=== PATIENT | female | born 1995 | race Caucasian/White ===

== ENCOUNTER → 2016-11-26 | Outpatient (REF) | payer OTHER | END | disposition home or self-care (01) | LOC: M SFHCLERA 08:58 | PROVIDERS: ATTEND Family Medicine | DX: Z11.8 Encounter for screening for other infectious and parasitic diseases (principal); R87.612 Low grade squamous intraepithelial lesion on cytologic smear of cervix (LGSIL) | CPT/HCPCS: 87491; 87591; G0123 ==

== ENCOUNTER → 2017-05-28 | Outpatient (CLI) | payer OTHER | LOC: M LRY 11:33 | PROVIDERS: ATTEND Family Medicine | DX: N92.6 Irregular menstruation, unspecified (principal); Z3A.01 Less than 8 weeks gestation of pregnancy ==

== ENCOUNTER → 2017-06-18 | Outpatient (CLI) | payer OTHER ==
[2017-06-18 18:52] LABS: BASO % 0.2 % (0.0-1.0); EOS # 0.2 K/mm3 (0.0-0.50); EOS % 1.4 % (0.0-3.0); LARGE UNSTAINED CELL # 0.1 K/mm3 (0.0-0.4); LARGE UNSTAINED CELL % 0.6 % (0.0-4.0); LYMPH # 2.2 K/mm3 (1.5-6.5); LYMPH % 17.7 % (24.0-44.0); MEAN CORPUSCULAR HEMOGLOBIN 31.5 pg (27.0-33.0); MEAN CORPUSCULAR HGB CONC 33.6 g/dl (32.0-36.5); MEAN CORPUSCULAR VOLUME 93.7 fl (80.0-96.0); MONO # 0.3 K/mm3 (0.0-0.8); MONO % 2.9 % (0.0-5.0); NEUTROPHILS # 9.2 K/mm3 (1.8-7.7); NEUTROPHILS % 77.3 % (36.0-66.0); PLATELET COUNT, AUTOMATED 216 k/mm3 (150-450); RED CELL DISTRIBUTION WIDTH 12.2 % (11.5-14.5); WHITE BLOOD COUNT 11.9 K/mm3 (4.0-10.0)
[2017-06-19 10:36] LABS: HBsAg Prenatal NEGATIVE (NEGATIVE)
== END ==
LOC: M LRY 12:19
PROVIDERS: ATTEND Advanced Practice Midwife
DX: Z36 Encounter for antenatal screening of mother (principal); Z3A.00 Weeks of gestation of pregnancy not specified

== ENCOUNTER → 2017-08-15 | Outpatient (CLI) | payer OTHER ==
--- NOTE | 2017-08-16 02:26 | REP ---
Clinical: Anatomical evaluation. Comparison: None . Findings: Examination demonstrates a single live intrauterine in cephalic presentation. motion is identified by technologist. Placenta is noted posteriorly and grade zero without evidence for placenta previa or abruption. Amniotic fluid volume is normal. Cervix measures 4.5 cm in length and appears closed. No evidence for nuchal cord. Gestational age by LMP 18 weeks 6 days with STACY 01/10/2018 . Gestational age by current measurements 18 weeks 4 days with STACY 01/12/2018 . FHR equals 147 beats per minute. BPD 4.0 cm 18 weeks 1 day HC 16.2 cm 19 weeks 0 days AC 13.1 cm 18 weeks 4 days FL 2.9 cm 19 weeks 0 day HL 3.0 cm 19 weeks 5 days HC/AC ratio 1.24 Estimated weight 257 grams ( 42nd percentile). Anatomical assessment demonstrates normal structures including cranium, choroid plexus, cavum, cerebellum/posterior fossa, facial features, lungs, four-chamber heart/ventricular outflow tracts, diaphragm, stomach, cord insertion/three-vessel cord, kidneys/bladder, spine, and extremities. Impression: Single live intrauterine in cephalic presentation demonstrating appropriate interval growth. No gross abnormalities are identified. Anatomical assessment is complete and normal. Signed by John Shrestha MD 08/16/2017 02:18 A
== END ==
LOC: M LRY 08:32
PROVIDERS: ATTEND Obstetrics & Gynecology
DX: Z36 Encounter for antenatal screening of mother (principal); Z3A.18 18 weeks gestation of pregnancy

== ENCOUNTER → 2017-10-14 | Outpatient (CLI) | payer OTHER ==
[2017-10-14 13:47] LABS: BASO % 0.3 % (0.0-1.0); EOS # 0.1 10^3/uL (0.0-0.50); EOS % 1.1 % (0.0-3.0); IMMATURE GRANULOCYTE % 0.8 % (0-0); LYMPH # 1.7 10^3/uL (1.5-6.5); LYMPH % 14.1 % (24.0-44.0); MEAN CORPUSCULAR HEMOGLOBIN 30.7 pg (27.0-33.0); MEAN CORPUSCULAR HGB CONC 33.3 g/dl (32.0-36.5); MEAN CORPUSCULAR VOLUME 92.2 fl (80.0-96.0); MONO # 0.7 10^3/uL (0.0-0.8); MONO % 6.2 % (0.0-5.0); NEUTROPHILS # 9.1 10^3/uL (1.8-7.7); NEUTROPHILS % 77.5 % (36.0-66.0); PLATELET COUNT, AUTOMATED 231 10^3/uL (150-450); WHITE BLOOD COUNT 11.7 10^3/uL (4.0-10.0)
== END ==
LOC: M SMT 09:38
PROVIDERS: ATTEND Advanced Practice Midwife
DX: Z34.83 Encounter for supervision of other normal pregnancy, third trimester (principal)

== ENCOUNTER → 2017-12-11 | Outpatient (CLI) | payer OTHER ==
[2017-12-11 19:36] LABS: ALBUMIN 2.8 GM/DL (3.2-5.2); ALBUMIN/GLOBULIN RATIO 0.72 (1.00-1.93); ALKALINE PHOSPHATASE 122 U/L (45-117); ALT/SGPT 20 U/L (12-78); AST/SGOT 17 U/L (7-37); BILIRUBIN,DIRECT < 0.1 MG/DL (0.0-0.2); BILIRUBIN,TOTAL 0.2 MG/DL (0.2-1.0); TOTAL PROTEIN 6.7 GM/DL (6.4-8.2)
[2017-12-14 08:06] LABS: BILE ACIDS FRACTIONATED 6.6 umol/L (4.7-24.5)
== END ==
LOC: M SMT 14:14
DX: R21 Rash and other nonspecific skin eruption (principal)
CPT/HCPCS: 80076

== ENCOUNTER → 2017-12-16 | Outpatient (REF) | payer OTHER | LOC: M LAB REF 13:17 | DX: Z34.83 Encounter for supervision of other normal pregnancy, third trimester (principal) ==

== ENCOUNTER 2018-01-01 13:44 | Outpatient (CLI) | payer OTHER | END 2018-01-01 15:45 | disposition home or self-care (01) | LOC: M LDO 13:44 | DX: O47.1 False labor at or after 37 completed weeks of gestation (principal); Z3A.38 38 weeks gestation of pregnancy | CPT/HCPCS: 59025 ==

== ENCOUNTER 2018-01-03 09:31 | Inpatient (IN) | payer OTHER ==
[2018-01-03] MEDS ORDERED: LR 1,000 ML IV (09:54)
[2018-01-03] MEDS: LACTATED RINGER'S 1000 ML IV (09:54)
[2018-01-03 10:35] LABS: HEMATOCRIT 34.4 % (36.0-47.0); HEMOGLOBIN 11.2 g/dl (12.0-16.0); MEAN CORPUSCULAR HEMOGLOBIN 26.9 pg (27.0-33.0); MEAN CORPUSCULAR HGB CONC 32.6 g/dl (32.0-36.5); MEAN CORPUSCULAR VOLUME 82.5 fl (80.0-96.0); PLATELET COUNT, AUTOMATED 254 10^3/uL (150-450); RED BLOOD COUNT 4.17 10^6/uL (4.00-5.40); RED CELL DISTRIBUTION WIDTH 14.7 % (11.5-14.5); WHITE BLOOD COUNT 17.8 10^3/uL (4.0-10.0)
[2018-01-03] MEDS ORDERED: FENTANYL 2MCG/ML ROPIVACAINE 0.2% IN 0.9% NACL 200ML IVBAG As Ordered (11:10)
[2018-01-03] MEDS ORDERED: FENTANYL/ROPIVACAINE/NACL BAG 200 ML EPIDURAL (12:30)
[2018-01-03] MEDS ORDERED: EPIDURAL/PCA KEYS XX (12:30)
[2018-01-03] MEDS ORDERED: ePHEDrine SULFATE 25 MG/5 ML(5MG/ML) SYRINGE IV (12:30)
[2018-01-03] MEDS ORDERED: NALOXONE INJ 0.4 MG/1 ML VIAL (J2310) IV (12:30)
[2018-01-03] MEDS ORDERED: EPIDURAL COMMENT XX (12:30)
[2018-01-03] MEDS ORDERED: ONDANSETRON 4MG/2ML VIAL (J2405) IV (12:30)
[2018-01-03] MEDS ORDERED: diphenhydrAMINE INJ 50MG/ML VIAL (J1200) IV (12:30)
[2018-01-03] MEDS ORDERED: LACTATED RINGER'S 1000 ML IV (12:30)
[2018-01-03] MEDS ORDERED: REFRIGERATOR IV KEYS XX (12:30)
[2018-01-03] MEDS ORDERED: ESMOLOL INJ 100MG/10ML VIAL As Ordered ×2 (12:50)
[2018-01-03] MEDS ORDERED: PHENYLephrine HCL 500 MCG/5 ML (100MCG/ML) SYRINGE (J2370) As Ordered (12:50)
[2018-01-03 13:44] LABS: AMPHETAMINES URINE REFLEX NEGATIVE (NEGATIVE); BARBITURATES URINE REFLEX NEGATIVE (NEGATIVE); BENZODIAZEPINES URINE REFLEX NEGATIVE (NEGATIVE); CANNABINOIDS URINE REFLEX NEGATIVE (NEGATIVE); COCAINE METABOLITE URINE REFLE NEGATIVE (NEGATIVE); METHADONE URINE REFLEX NEGATIVE (NEGATIVE); OPIATES URINE REFLEX NEGATIVE (NEGATIVE); PHENCYCLIDINE URINE REFLEX NEGATIVE (NEGATIVE)
[2018-01-03] MEDS ORDERED: OXYTOCIN 30 UNITS IN 0.9% NaCl 500ML IV BAG (J2590) As Ordered (20:26)
[2018-01-03 20:49] LABS: CHLAMYDIA DNA AMPLIFICATION NEGATIVE (NEGATIVE); GC DNA AMPLIFICATION NEGATIVE (NEGATIVE)
[2018-01-03] MEDS ORDERED: METHYLERGONOVINE MALEATE 0.2 MG TAB PO (21:15)
[2018-01-03] MEDS ORDERED: DOCUSATE SODIUM 100 MG CAP PO (21:15)
[2018-01-03] MEDS ORDERED: RHOGAM 300 MCG (1500 IU) INJ (J2790) IM (21:15)
[2018-01-03] MEDS ORDERED: ANUSOL HC CREAM 30GM TOP (21:15)
[2018-01-03] MEDS ORDERED: DIBUCAINE 1% OINTMENT 30GM TOP (21:15)
[2018-01-03] MEDS ORDERED: ACETAMINOPHEN 500 MG TAB PO (21:15)
[2018-01-03] MEDS: LIDOCAINE 1% MDV INJ 50 ML VIAL INFIL (21:15)
[2018-01-03] MEDS ORDERED: MEASLES,MUMPS,RUBELLA VACCINE INJ (MMR-II) (90707) SC (21:15)
[2018-01-03] MEDS: OXYTOCIN DRIP 30 UNITS in APPROPRIATE DILUENT 1 EA IV (21:36)
[2018-01-03] MEDS: METHYLERGONOVINE MALEATE 0.2 MG/ML VIAL (J2210) IM (21:39)
[2018-01-03] MEDS: IBUPROFEN 800 MG TAB PO (23:39)
[2018-01-04] MEDS: PRENATAL VITAMINS CHEWABLE TABLET PO (09:25)
[2018-01-04] MEDS: IBUPROFEN 800 MG TAB PO (15:48)
[2018-01-05] MEDS: IBUPROFEN 800 MG TAB PO ×2 (00:49→11:28)
[2018-01-05] MEDS: PRENATAL VITAMINS CHEWABLE TABLET PO (08:50)
== END 2018-01-05 11:40 | disposition home or self-care (01) | DRG 775 ==
LOC: M LDI 09:31 → M OBS 22:45
PROVIDERS: Advanced Practice Midwife
PROC: 10E0XZZ Delivery of Products of Conception, External Approach (ICD-10-PCS; principal; 2018-01-03)
PROC: 0HQ9XZZ Repair Perineum Skin, External Approach (ICD-10-PCS; 2018-01-03)
DX: O70.0 First degree perineal laceration during delivery (principal); Z3A.39 39 weeks gestation of pregnancy; Z37.0 Single live birth

== ENCOUNTER → 2018-08-01 | Outpatient (REF) | payer OTHER ==
[2018-08-01 11:35] LABS: BASO % 0.5 % (0.0-1.0); EOS # 0.2 10^3/uL (0.0-0.50); EOS % 2.4 % (0.0-3.0); HEMOGLOBIN 13.6 g/dl (12.0-15.5); IMMATURE GRANULOCYTE % 0.3 % (0-3.0); LYMPH # 2.3 10^3/uL (1.5-6.5); LYMPH % 35.3 % (24.0-44.0); MEAN CORPUSCULAR HEMOGLOBIN 30.4 pg (27.0-33.0); MEAN CORPUSCULAR VOLUME 89.5 fl (80.0-96.0); MONO # 0.4 10^3/uL (0.0-0.8); MONO % 6.4 % (0.0-5.0); NEUTROPHILS # 3.5 10^3/uL (1.8-7.7); NEUTROPHILS % 55.1 % (36.0-66.0); PLATELET COUNT, AUTOMATED 187 10^3/uL (150-450); RED BLOOD COUNT 4.47 10^6/uL (4.00-5.40); RED CELL DISTRIBUTION WIDTH 12.4 % (11.5-14.5); WHITE BLOOD COUNT 6.4 10^3/uL (4.0-10.0)
[2018-08-01 12:17] LABS: ALBUMIN/GLOBULIN RATIO 1.05 (1.00-1.93); ALKALINE PHOSPHATASE 93 U/L (45-117); ALT/SGPT 22 U/L (12-78); ANION GAP 6 MEQ/L (8-16); AST/SGOT 16 U/L (7-37); BILIRUBIN,TOTAL 0.5 MG/DL (0.2-1.0); BLOOD UREA NITROGEN 9 MG/DL (7-18); CALCIUM LEVEL 8.9 MG/DL (8.5-10.1); CARBON DIOXIDE LEVEL 30 MEQ/L (21-32); CHLORIDE LEVEL 106 MEQ/L (98-107); CREATININE FOR GFR 0.93 MG/DL (0.55-1.30); GLOMERULAR FILTRATION RATE > 60.0 (>60); GLUCOSE, FASTING 76 MG/DL (70-100); POTASSIUM SERUM 4.3 MEQ/L (3.5-5.1); SODIUM LEVEL 142 MEQ/L (136-145); TOTAL PROTEIN 7.8 GM/DL (6.4-8.2)
== END ==
LOC: M SFHCLERA 09:32
DX: F41.1 Generalized anxiety disorder (principal); F53 Mental and behavioral disorders associated with the puerperium, not elsewhere classified

== ENCOUNTER → 2019-03-06 | Outpatient (CLI) | payer OTHER ==
[~2019-03-06] MED LIST: BENA25CA4 PO; IBUP-1114 PO; MAPA500T2 PO; PRENTAB9 PO
--- NOTE | 2019-03-06 10:32 | REP ---
RIGHT FOOT, FOUR VIEWS: HISTORY: Great toe bunion. There is no acute fracture or dislocation. An accessory ossicle is present at the base of the first distal phalange. The joint spaces are normal in appearance. IMPRESSION: There is no acute fracture or dislocation. Electronically Signed by Dk Sy MD 03/06/2019 10:36 A
== END ==
LOC: M LRY 09:29
PROVIDERS: ATTEND Family Medicine
DX: M21.611 Bunion of right foot (principal)
CPT/HCPCS: 73630; G0463

== ENCOUNTER → 2019-09-10 | Outpatient (CLI) | payer OTHER | LOC: M LRY 14:46 | PROVIDERS: ATTEND Specialist | DX: O20.0 Threatened abortion (principal) ==

== ENCOUNTER → 2019-09-14 | Outpatient (CLI) | payer OTHER | LOC: M LRY 12:30 | PROVIDERS: ATTEND Specialist | DX: O20.0 Threatened abortion (principal) ==

== ENCOUNTER → 2020-07-04 | Outpatient (REF) | payer OTHER ==
[2020-08-03 15:51] LABS: CHLAMYDIA DNA AMPLIFICATION NEGATIVE (NEGATIVE); GC DNA AMPLIFICATION NEGATIVE (NEGATIVE)
[2020-08-19 14:40] LABS: BASO % 0.2 % (0.0-1.0); EOS # 0.1 10^3/uL (0.0-0.5); EOS % 1.1 % (0.0-3.0); HEMATOCRIT 39.3 % (36.0-47.0); HEMOGLOBIN 13.4 g/dl (12.0-15.5); LYMPH # 1.6 10^3/uL (1.5-5.0); LYMPH % 15.9 % (24.0-44.0); MEAN CORPUSCULAR HEMOGLOBIN 31.2 pg (27.0-33.0); MEAN CORPUSCULAR HGB CONC 34.1 g/dl (32.0-36.5); MEAN CORPUSCULAR VOLUME 91.4 fl (80.0-96.0); MONO # 0.4 10^3/uL (0.0-0.8); NEUTROPHILS # 7.8 10^3/uL (1.5-8.5); NEUTROPHILS % 78.4 % (36.0-66.0); PLATELET COUNT, AUTOMATED 253 10^3/uL (150-450); WHITE BLOOD COUNT 9.9 10^3/uL (4.0-10.0)
[2020-08-29 23:52] LABS: HEPATITIS B SURFACE ANTIGEN NEGATIVE (NEGATIVE); HEPATITIS C VIRUS ABY INDEX 0.2 INDEX (<0.8); HIV 1&2 SCREEN CENTAUR NEGATIVE (NEGATIVE)
== END ==
LOC: M SFHCWAGY 10:45
PROVIDERS: ATTEND Advanced Practice Midwife
DX: Z34.81 Encounter for supervision of other normal pregnancy, first trimester (principal)

== ENCOUNTER → 2020-07-28 | Outpatient (REF) | payer OTHER ==
[2020-07-28 16:34] LABS: FREE T4 0.89 NG/DL (0.76-1.46); THYROID STIMULATING HORMONE 1.43 uIU/ML (0.358-3.740)
== END ==
LOC: M PLALAB 10:53
PROVIDERS: ATTEND Advanced Practice Midwife
DX: Z34.82 Encounter for supervision of other normal pregnancy, second trimester (principal); Z3A.00 Weeks of gestation of pregnancy not specified

== ENCOUNTER → 2020-09-01 | Outpatient (CLI) | payer OTHER ==
--- NOTE | 2020-09-01 11:45 | REP ---
INDICATION: ANATOMY COMPARISON: None. TECHNIQUE: Transabdominal obstetrical ultrasound with color Doppler evaluation. FINDINGS: Examination demonstrates a single live intrauterine in breech presentation. motion is identified by technologist. Marginal placenta is noted anterior and grade 1 measuring 1.4 cm from the closed internal os. Amniotic fluid volume is normal. Cervix measures 3.7 cm in length and appears closed. No evidence for nuchal cord. Gestational age by current measurements 18 weeks 0 days with STACY 02/02/2021. FHR equals 134 beats per minute. BPD: 4.1 cm; 18 weeks 2 days HC: 14.8 cm; 18 weeks 0 days AC: 11.9 cm; 17 weeks 4 days FL: 2.7 cm; 18 weeks 0 days HL: 2.6 cm; 18 weeks 1 day HC/AC ratio: 1.21 Estimated weight 213 grams (29thpercentile). Anatomical assessment demonstrates normal structures including cranium, cavum, cerebellum/posterior fossa, facial features, lungs, four-chamber heart/ventricular outflow tracts, diaphragm, stomach, cord insertion/three-vessel cord, kidneys/bladder, spine, and extremities. Small bilateral choroid plexus cysts measure up to 3 mm. IMPRESSION: 1. Single live intrauterine in breech presentation demonstrating appropriate interval growth. 2. Choroid plexus cysts. Remainder of the anatomic assessment is complete and normal. 3. Marginal placenta 14 mm from the closed internal os. <Electronically signed by John Shrestha > 09/01/20 [id number]
== END ==
LOC: M WHC 09:08
PROVIDERS: ATTEND Advanced Practice Midwife
DX: Z34.82 Encounter for supervision of other normal pregnancy, second trimester (principal)
CPT/HCPCS: 76811; 76817; G0463

== ENCOUNTER → 2020-09-08 | Outpatient (CLI) | payer OTHER | LOC: M PLALAB 10:04 | PROVIDERS: ATTEND Advanced Practice Midwife | DX: O28.3 Abnormal ultrasonic finding on antenatal screening of mother (principal) ==

== ENCOUNTER → 2020-10-28 | Outpatient (REF) | payer OTHER ==
[2020-10-28 15:45] LABS: HEMATOCRIT 34.8 % (36.0-47.0); HEMOGLOBIN 11.1 g/dl (12.0-15.5); MEAN CORPUSCULAR HEMOGLOBIN 29.1 pg (27.0-33.0); MEAN CORPUSCULAR HGB CONC 31.9 g/dl (32.0-36.5); MEAN CORPUSCULAR VOLUME 91.3 fl (80.0-96.0); PLATELET COUNT, AUTOMATED 242 10^3/uL (150-450); RED BLOOD COUNT 3.81 10^6/uL (4.00-5.40); WHITE BLOOD COUNT 13.7 10^3/uL (4.0-10.0)
== END ==
LOC: M PLALAB 11:25
PROVIDERS: ATTEND Advanced Practice Midwife
DX: O44.20 Partial placenta previa NOS or without hemorrhage, unspecified trimester (principal); Z3A.00 Weeks of gestation of pregnancy not specified
CPT/HCPCS: 36415; 82950; 85027; 86850; 86900; 86901; G0463

== ENCOUNTER → 2020-11-14 | Outpatient (CLI) | payer OTHER ==
--- NOTE | 2020-11-14 08:51 | REP ---
INDICATION: MARGINAL PREVIA ON PRIOR U/S,RE EVALUATE. COMPARISON: September 01, 2020.. TECHNIQUE: Transabdominal obstetric sonography. FINDINGS: Scanning through the gravid uterus demonstrates a viable single intrauterine gestation in cephalic lie. motion is observed and heart rate is recorded at 143 beats per minute. A anterior placenta is seen, grade 1, without evidence of placenta previa. The internal cervical os is 3.1 cm from the inferior tip of the placenta on transabdominal imaging. Amniotic fluid is subjectively normal. Closed cervical length is measured at 3.0 cm transabdominally. No extrauterine abnormality is observed. Amniotic fluid is subjectively normal. The following anatomic structures are again identified felt to be unremarkable: cranium, choroid plexus, face and profile, four-chamber heart, diaphragm, left-sided stomach, urinary bladder, three-vessel cord.. Biometry chart: BPD 7.1 cm, 28 weeks 4 days Head circumference 26.4 cm, 28 weeks 5 days Abdominal circumference 24.1 cm, 28 weeks 2 days Femur length 5.4 cm, 28 weeks 3 days Humeral length 4.9 cm, 29 weeks 0 days HC AC ratio normal 1.10 Cephalic index normal 0.75 Estimated weight 1222 g, 2 lb 11 oz, 46 percentile for 28 weeks 5 days IMPRESSION: Viable single intrauterine gestation at 28 weeks 4 days by today's composite sonographic criteria. STACY by today's sonography February 02, 2021. No complication identified. Expected gestational age estimate based on prior sonography 28 weeks 5 days, STACY by prior sonography February 01, 2021. No evidence of placenta previa. <Electronically signed by Chivo Gordon > 11/14/20 0812
== END ==
LOC: M WHC 06:41
PROVIDERS: ATTEND Obstetrics & Gynecology
DX: Z34.82 Encounter for supervision of other normal pregnancy, second trimester (principal); Z3A.26 26 weeks gestation of pregnancy

== ENCOUNTER → 2020-11-16 | Outpatient (CLI) | payer OTHER | LOC: M LABSMTC 12:50 | PROVIDERS: ATTEND Family Medicine | DX: Z20.828 Contact with and (suspected) exposure to other viral communicable diseases (principal) ==

== ENCOUNTER → 2021-01-02 | Outpatient (REF) | payer OTHER | LOC: M PLALAB 08:08 | PROVIDERS: ATTEND Obstetrics & Gynecology | DX: Z36.89 Encounter for other specified antenatal screening (principal) | CPT/HCPCS: 87081; G0463 ==

== ENCOUNTER 2021-01-30 12:16 | Inpatient (IN) | payer OTHER ==
[~2021-01-30] VITALS: Ht 157.5 cm; Wt 74.3 kg
[2021-01-30] VITALS (14 sets, daily range): BP systolic 105–148; BP diastolic 59–92
[2021-01-30] MEDS ORDERED: OMEP40CA97 PO (12:30)
[2021-01-30] MEDS ORDERED: LACTATED RINGER'S 1000 ML IV STA (12:50)
--- NOTE | 2021-01-30 12:53 | HPEPDOC ---
Obstetrical History & Physical General Date of Admission Jan 30, 2021 at 12:16 Primary Care Physician: LUC BRO CNM History of Present Illness Chiara is a 25-year-old female who is a at 39.5 weeks gestation with an STACY of 02/01/21 based off of her LMP and consistent with her first trimester ultrasound. She initiated care in her first trimester of . Her has been complicated by a resolved marginal previa and +Covid diagnosis. She presents to L&D for an elective induction of labor. She reports occasional contractions and active movement. She denies leaking of fluid or vaginal bleeding. Chief Complaint: Induction of labor Information Provided By: Patient Age: 25 : 3 Term: 1 Pre-term: 0 Abortions: 1 Livin Care Care: Good Care Dating Final EDC: Feb 01, 2021 Final EDC by: LMP EGA at Admission: 39.5 Antepartum Course Diagnos(e)s resolved marginal previa Covid positive on 11/18/20. Height (inches): 62 Admission Weight (lbs.): 162 Past Medical History Past Obstetrical History : Past Obstetrical History: Primgravida Gestation: 39 Type of Delivery: Spontaneous Vaginal Del. Sex of Infant: Female (7 lbs 10 oz) Complications: Yes (retained placenta) Past Medical History Medical History migraine with aura COVID 11/18/20 Surgical History: Denies/None Family History Significant Family History: Cancer Social History Marital Status: Family situation: Spouse/partner home * Smoker: former Smoker Alcohol: Denies Drugs: denies Abuse Violence Screening Have you been hit/kicked/slapp: No Have you been sexually assault: No Allergies Coded Allergies: No Known Allergies (Unverified , 01/01/18) Medications Scheduled Omeprazole (Omeprazole) 40 Mg Capsule.dr, 40 MG PO DAILY No.137/Iron/Folic Acd ( Vitamin Tablet) 1 Tab Tab, 1 TAB PO DAILY Physical Examination Physical Examination GENERAL: Alert and oriented times three. BREAST: . ABDOMEN: Gravid and non-tender to touch. FETUS: Is vertex (VTX) by sterile vaginal examination (SVE), fetus is vertex (VTX) by Vj. LUNGS: Clear to auscultation (CTA). EXTREMITIES: Generalized edema. No clonus. Deep tendon reflexes (DTRs) + 2. Vital Signs/I&O Vital Signs Label Value Date Time Patient Temperature 98.4 degrees F 01/30/21 1248 Temperature Source Temporal 01/30/21 1248 Pulse 99 01/30/21 1248 Respiratory Rate 18 bpm 01/30/21 1248 Blood Pressure Assessment 124/82 (96) 01/30/21 1248 Source Automatic Cuff (NIBP) Laboratory Data 24H LABS Laboratory Tests 2 01/30/21 12:26: Serology Scanned Report Hepatitis B Testing Urine Culture: No Growth Pertinent Laboratoy Data Blood Type: A+ RBC Antibody Screen: Negative HIV: Negative Hepatitis B: Negative Hepatitis C: Negative Rapid Plasma Reagin: Nonreactive Rubella: Immune Chlamydia/Gonorrhea: Negative Group B Streptococcus: Negative Glucose Tolerance Test: 87 Anatomy Ultrasound Placenta Location: Anterior Normal Anatomy: Yes Placenta Previa: No Vaginal Examination Dilation: 3 cm Effacement: 50% Station: -2 Cervical Position: Anterior Presentation: Cephalic presentation Position: Vertex (occiput) Assessment Heart Rate (FHR): 130 Variability: Moderate Accelerations: Positive Decelerations: None Tocometer Contractions: Yes Frequency: irregular, every 2-5 min. Multi-drug resistant Organism: No history of MDRO Assessment/Plan Assessment IUP at 39.5 weeks gestation GBS negative elective induction of labor Category I FHR tracing. Plan Admit to L&D. OOB ad ben. Diet: clears. Group B Streptococcus (GBS) negative. Labs and intravenous (IV) per unit protocol. Counseled on deluna bulb and IV Pitocin for induction of labor (IOL). Anesthesia consult per patient's request. Lactated Ringers (LR): Bolus 800 mL, then at 125 mL/hr. Deluna bulb inserted with 70/40. Patient tolerated well. IV Pitocin to be started. C-S as appropriate. LUC BRO CNM Jan 30, 2021 12:53
[2021-01-30 13:37] LABS: HEMATOCRIT 30.8 % (36.0-47.0); HEMOGLOBIN 9.7 g/dl (12.0-15.5); MEAN CORPUSCULAR HEMOGLOBIN 26.6 pg (27.0-33.0); MEAN CORPUSCULAR HGB CONC 31.5 g/dl (32.0-36.5); MEAN CORPUSCULAR VOLUME 84.6 fl (80.0-96.0); PLATELET COUNT, AUTOMATED 205 10^3/uL (150-450); RED BLOOD COUNT 3.64 10^6/uL (4.00-5.40); WHITE BLOOD COUNT 10.9 10^3/uL (4.0-10.0)
[2021-01-30] MEDS ORDERED: OXYTOCIN DRIP 30 UNITS in IV 1 EA IV SCH (13:45)
[2021-01-30] MEDS: LR 1,000 ML IV SCH (15:00)
--- NOTE | 2021-01-30 21:35 | IPNPDOC ---
Obstetrical Progress Note Date of Service Jan 30, 2021 Subjective Patient reports she is feeling contractions and has to breath through some of them. Reports she is still coping well. Objective Vital Signs Date Time Temp Pulse Resp B/P (MAP) Pulse Ox O2 Delivery O2 Flow Rate FiO2 01/30/21 19:05 98.6 94 16 128/72 (90) Assessment Heart Rate (FHR): 120 Variability: Moderate Accelerations: Positive Decelerations: None Heart Rate Tracing: Category I Tocometer Contractions: Yes Frequency: regular, every 2-2 min. Sterile Vaginal Examination Dilation: 5 cm Effacement (%): other (thick) Station: -3 Cervical Consistency: Soft Cervical Position: Anterior Postion/Presentation: Cephalic presentation Assessment and Plan Status: Reassuring Group B Streptococcus: Negative Anticipate: Vaginal Delivery Additional Comments IV Pitocin increased to 12 mu/min. LUC BRO CNM Jan 30, 2021 21:35
[2021-01-30] MEDS ORDERED: FENTANYL 2MCG/ML ROPIVACAINE 0.2% IN 0.9% NACL 100ML IVBAG As Ordered ONE (22:57)
[2021-01-31] VITALS (43 sets, daily range): BP systolic 83–147; BP diastolic 50–81
[2021-01-31] MEDS: LR 1,000 ML IV SCH ×3 (00:30→08:28)
[2021-01-31] MEDS ORDERED: ONDANSETRON 4MG/2ML VIAL IV PRN (01:05)
[2021-01-31] MEDS ORDERED: EPIDURAL/PCA KEYS XX PRN (01:05)
[2021-01-31] MEDS ORDERED: diphenhydrAMINE 50MG/ML VIAL (J1200) IV PRN (01:05)
[2021-01-31] MEDS ORDERED: EPIDURAL COMMENT XX SCH (01:05)
[2021-01-31] MEDS ORDERED: LACTATED RINGER'S 1000 ML IV PRN (01:05)
[2021-01-31] MEDS ORDERED: NALOXONE INJ 0.4MG/1ML VIAL (J2310 PER 1MG) IV PRN (01:05)
[2021-01-31] MEDS ORDERED: REFRIGERATOR IV KEYS XX PRN (01:05)
[2021-01-31] MEDS: FENTANYL/ROPIVACAINE/NACL BAG 100 ML EPIDURAL SCH ×2 (01:09→08:06)
--- NOTE | 2021-01-31 01:22 | IPNPDOC ---
Obstetrical Progress Note Date of Service Jan 31, 2021 Subjective Patient comfortable with epidural. Objective Vital Signs Date Time Temp Pulse Resp B/P (MAP) Pulse Ox O2 Delivery O2 Flow Rate FiO2 01/30/21 23:05 90 105/59 (74) 01/30/21 22:05 98.5 01/30/21 19:05 16 Assessment Heart Rate (FHR): 120 Variability: Moderate Accelerations: Positive Decelerations: None Heart Rate Tracing: Category I Tocometer Contractions: Yes Frequency: regular, other (2-3 minutes) Strength: palpated as moderate Sterile Vaginal Examination Dilation: 6 cm Effacement (%): other (75%) Station: -2 Cervical Consistency: Soft Cervical Position: Anterior Postion/Presentation: Cephalic presentation Assessment and Plan EGA at Admission: 39.5 Group B Streptococcus: Negative Anticipate: Vaginal Delivery Additional Comments IV Pitocin at 14 mu/min. Bedside ultrasound done as nurse reports she couldn't feel a head with vaginal exam. Cephalic presentation noted. LUC BRO CNM Jan 31, 2021 01:22
[2021-01-31] MEDS: ePHEDrine SULFATE 25 MG/5 ML(5MG/ML) SYRINGE IV PRN ×3 (02:31→03:34)
--- NOTE | 2021-01-31 06:15 | IPNPDOC ---
Obstetrical Progress Note Date of Service Jan 31, 2021 Subjective Patient comfortable with her epidural. Objective Vital Signs Date Time Temp Pulse Resp B/P (MAP) Pulse Ox O2 Delivery O2 Flow Rate FiO2 01/31/21 04:28 82 16 105/58 (74) 01/30/21 23:36 97.9 Assessment Heart Rate (FHR): 130 Variability: Moderate Accelerations: Positive Decelerations: None Heart Rate Tracing: Category I Tocometer Contractions: Yes Frequency: regular Sterile Vaginal Examination Dilation: 7 cm Effacement (%): other (75%) Station: -1 Cervical Consistency: Soft Cervical Position: Anterior Postion/Presentation: Cephalic presentation Assessment and Plan EGA at Admission: 39.5 Weeks & Days 39.6 weeks Status: Reassuring Group B Streptococcus: Negative Anticipate: Vaginal Delivery Additional Comments IV Pitocin at 16 mu/min. AROM to a moderate amount of clear fluid. LUC BRO CNM Jan 31, 2021 06:15
[2021-01-31] MEDS ORDERED: OXYTOCIN DRIP 30 UNITS in IV 1 EA IV SCH (10:19)
[2021-01-31] MEDS ORDERED: METHYLERGONOVINE MALEATE 0.2 MG TAB PO PRN (10:20)
[2021-01-31] MEDS ORDERED: RHOGAM 300 MCG (1500 IU) INJ (J2790) IM SCH (10:20)
[2021-01-31] MEDS ORDERED: ANUSOL HC CREAM 30GM TOP PRN (10:20)
[2021-01-31] MEDS ORDERED: IBUPROFEN 600MG TAB PO PRN (10:20)
[2021-01-31] MEDS ORDERED: MEASLES,MUMPS,RUBELLA VACCINE INJ (MMR-II) (90707) SC SCH (10:20)
[2021-01-31] MEDS ORDERED: DIBUCAINE 1% OINTMENT 30GM TOP PRN (10:20)
[2021-01-31] MEDS ORDERED: DOCUSATE SODIUM 100MG CAPSULE PO PRN (10:20)
[2021-01-31] MEDS ORDERED: ACETAMINOPHEN TAB 650MG DOSE (2X325MG) PO PRN (10:20)
--- NOTE | 2021-01-31 10:35 | DNPDOC ---
[facility] Delivery Note Delivery Note DATE OF DELIVERY: 01/31/21 at 0953 PREDELIVERY DIAGNOSIS: 39-5/7 weeks' gestation and elective induction. POST DELIVERY DIAGNOSIS: Delivered. PROCEDURE: Spontaneous vaginal delivery. BUS SYSTEM OPERATOR: Luc Shaw CNM, THALIA ANESTHESIA: epidural. ESTIMATED BLOOD LOSS: 400 mL. FINDINGS: 8 pounds 1 ounce; 3650 grams; male , Score 8/9, nuchal cord times 1 tight. DELIVERY SUMMARY: Chiara is a 25-year-old female who is now a who presented to L&D for an elective induction of labor. She received a deluna bulb and IV Pitocin for induction of labor. She requested an epidural for pain management. The patient progressed to fully dilated at 0935 and pushed to a living male in the ANNEL position with restitution to ROT. A tight nuchal cord was noted and unable to be reduced. The anterior shoulder delivered with ease and the corpus immediately followed via somersault. The baby was placed skin to skin active and crying with stimulation. The cord was clamped x2 after 3 minutes and cut by the FOB. A 3-vessel cord was noted. The placenta delivered spontaneously and intact at 1000. Uterine hemostasis was achieved via rapid infusion of IV Pitocin and fundal massage. The vagina, cervix, and perineum were inspected and found to be intact. They plan on naming him Socrates. The plans to breastfeed. Both mom and baby are instable condition. All counts of instruments and sponges are correct. LUC SHAW CNM Jan 31, 2021 10:35
[2021-01-31] MEDS: PRENATAL VITAMINS CHEWABLE TABLET PO SCH (10:41)
[2021-01-31] MEDS: ACETAMINOPHEN 500 MG TAB PO PRN ×2 (10:42→22:05)
[2021-01-31] MEDS: IBUPROFEN 800 MG TAB PO PRN (17:30)
[2021-02-01 06:00] VITALS: BP 104/56
[2021-02-01] MEDS: PRENATAL VITAMINS CHEWABLE TABLET PO SCH (08:42)
[2021-02-01] MEDS: ACETAMINOPHEN 500 MG TAB PO PRN (08:43)
--- NOTE | 2021-02-01 10:11 | IPNPDOC ---
Progress Note Date of Service: Feb 01, 2021 Day#: 1 Progress Note PPD 1 SUBJECT: Chiara is a 25yo [id number] s/p uncomplicated after undergoing elective induction of labor, doing well day # 1. She has been ambulating, voiding spontaneously without issue and tolerating regular diet. Breast feeding without issue. Reports lochia is like a normal period. No f/c/n/v/CP/SOB. OBJECTIVE: VITAL SIGNS: Within normal limits, afebrile. Alert and oriented times three. Abdomen: Fundus firm at U-2. Soft, NTTP. Extremities: no pain with palpation of calves ASSESSMENT: Chiara is a 25yo [id number] s/p uncomplicated after undergoing elective induction of labor, doing well day # 1. Vitals within normal limits, afebrile, hemodynamically stable with no evidence of infection. PLAN: 1. Discharge to home today if baby is able to be discharged 2. Tylenol and Motrin for pain. 3. Encourage breast feeding and ambulation. 4. undecided on contraception 5. Routine PP visit in 6 weeks in clinic. 6. Discussed return precautions at length. 7. vaginal rest and no heavy lifting 6 weeks Jennifer Pickett MD VS, I&O, 24H, Fishbone Vital Signs/I&O Vital Signs Date Time Temp Pulse Resp B/P (MAP) Pulse Ox O2 Delivery O2 Flow Rate FiO2 02/01/21 06:00 97.8 87 18 104/56 (72) 98 Room Air I&O- Last 24 Hours up to 6 AM 02/01/21 06:00 Intake Total 1974 ml Output Total 1625 ml Balance 349 ml Jennifer Pickett MD Feb 01, 2021 10:11
--- NOTE | 2021-02-01 10:13 | DS.PDOC ---
Discharge Summary General Date of Admission Jan 30, 2021 at 12:16 Date of Discharge Feb 01, 2021 Discharge Summary PROCEDURES PERFORMED DURING STAY: spontaneous vaginal delivery ADMITTING DIAGNOSES: 1. elective IOL at term DISCHARGE DIAGNOSES: 1. elective IOL at term, s/p delivery COMPLICATIONS/CHIEF COMPLAINT: Induction - Social. HISTORY OF PRESENT ILLNESS/HOSPITAL COURSE: Chiara is a 25yo [id number] s/p uncomplicated after undergoing elective induction of labor, doing well day # 1. Vitals within normal limits, afebrile, hemodynamically stable with no evidence of infection. DISCHARGE MEDICATIONS: Please see below. ALLERGIES: Please see below. PHYSICAL EXAMINATION ON DISCHARGE: VITAL SIGNS: Within normal limits, afebrile. Alert and oriented times three. Abdomen: Fundus firm at U-2. Soft, NTTP. Extremities: no pain with palpation of calves LABORATORY DATA: Please see below. DIET: regular DISCHARGE INSTRUCTIONS: 1. Discharge to home today if baby is able to be discharged 2. Tylenol and Motrin for pain. 3. Encourage breast feeding and ambulation. 4. undecided on contraception 5. Routine PP visit in 6 weeks in clinic. 6. Discussed return precautions at length. 7. vaginal rest and no heavy lifting 6 weeks DISCHARGE CONDITION: Stable TIME SPENT ON DISCHARGE: Greater than 20 minutes. Vital Signs/I&Os Vital Signs Date Time Temp Pulse Resp B/P (MAP) Pulse Ox O2 Delivery O2 Flow Rate FiO2 02/01/21 06:00 97.8 87 18 104/56 (72) 98 Room Air I&O- Last 24 Hours up to 6 AM 02/01/21 06:00 Intake Total 1974 ml Output Total 1625 ml Balance 349 ml Discharge Medications Scheduled Omeprazole (Omeprazole) 40 Mg Capsule.dr, 40 MG PO DAILY, (Reported) No.137/Iron/Folic Acd ( Vitamin Tablet) 1 Tab Tab, 1 TAB PO DAILY, (Reported) Allergies Coded Allergies: No Known Allergies (Unverified , 01/01/18) Jennifer Pickett MD Feb 01, 2021 10:12
[2021-02-01] MEDS ORDERED: ACET-683 PO (10:14)
[2021-02-01] MEDS ORDERED: IBUP80TA PO (10:14)
[2021-02-01] MEDS ORDERED: DOK1CAP7 PO (10:14)
[2021-02-01] MEDS: IBUPROFEN 800 MG TAB PO PRN (15:31)
== END 2021-02-01 18:43 | disposition home or self-care (01) | DRG 807 ==
LOC: M LDI 12:16 → M OBS 01-31 12:20
PROVIDERS: ADMIT Advanced Practice Midwife; ATTEND Advanced Practice Midwife
PROC: 3E033VJ Introduction of Other Hormone into Peripheral Vein, Percutaneous Approach (ICD-10-PCS; 2021-01-30)
PROC: 10E0XZZ Delivery of Products of Conception, External Approach (ICD-10-PCS; principal; 2021-01-31)
PROC: 10907ZC Drainage of Amniotic Fluid, Therapeutic from Products of Conception, Via Natural or Artificial Opening (ICD-10-PCS; 2021-01-31)
DX: O69.1XX0 Labor and delivery complicated by cord around neck, with compression, not applicable or unspecified (principal); Z37.0 Single live birth; Z3A.39 39 weeks gestation of pregnancy; Z86.16 Personal history of COVID-19

== ENCOUNTER → 2021-04-20 | Outpatient (REF) | payer OTHER ==
[~2021-04-20] MED LIST changes: +ACET-683 PO; +DOK1CAP7 PO; +IBUP80TA PO; +OMEP40CA97 PO
== END ==
LOC: M SFHCWAGY 18:35
PROVIDERS: ATTEND Advanced Practice Midwife
DX: Z12.4 Encounter for screening for malignant neoplasm of cervix (principal); R87.610 Atypical squamous cells of undetermined significance on cytologic smear of cervix (ASC-US)

== ENCOUNTER → 2021-11-20 | Outpatient (CLI) | payer OTHER ==
[~2021-11-20] MED LIST changes: +DOK1CAP4 PO; -DOK1CAP7 PO; +OMEP40CA4 PO; -OMEP40CA97 PO
[2021-11-20 17:21] LABS: BASO % 0.4 % (0.0-1.0); EOS # 0.1 10^3/uL (0.0-0.5); EOS % 1.3 % (0.0-3.0); HEMATOCRIT 41.3 % (36.0-47.0); HEMOGLOBIN 13.8 g/dl (12.0-15.5); LYMPH # 2.2 10^3/uL (1.5-5.0); LYMPH % 31.4 % (24.0-44.0); MEAN CORPUSCULAR HEMOGLOBIN 30.7 pg (27.0-33.0); MEAN CORPUSCULAR HGB CONC 33.4 g/dl (32.0-36.5); MEAN CORPUSCULAR VOLUME 91.8 fl (80.0-96.0); MONO # 0.3 10^3/uL (0.0-0.8); MONO % 4.2 % (2.0-8.0); NEUTROPHILS # 4.4 10^3/uL (1.5-8.5); NEUTROPHILS % 62.4 % (36.0-66.0); PLATELET COUNT, AUTOMATED 252 10^3/uL (150-450); WHITE BLOOD COUNT 7.1 10^3/uL (4.0-10.0)
[2021-11-20 17:39] LABS: FREE T4 0.96 NG/DL (0.76-1.46); THYROID STIMULATING HORMONE 1.82 uIU/ML (0.358-3.740)
== END ==
LOC: M LAB 16:04
PROVIDERS: ATTEND Student in an Organized Health Care Education/Training Program
DX: R53.83 Other fatigue (principal)

== ENCOUNTER → 2022-03-02 | Outpatient (CLI) | payer OTHER ==
[2022-03-02 13:46] LABS: BASO % 0.2 % (0.0-1.0); EOS # 0.1 10^3/uL (0.0-0.5); EOS % 0.6 % (0.0-3.0); HEMATOCRIT 41.2 % (36.0-47.0); HEMOGLOBIN 13.8 g/dl (12.0-15.5); LYMPH # 1.4 10^3/uL (1.5-5.0); LYMPH % 13.9 % (24.0-44.0); MEAN CORPUSCULAR HEMOGLOBIN 30.5 pg (27.0-33.0); MEAN CORPUSCULAR HGB CONC 33.5 g/dl (32.0-36.5); MEAN CORPUSCULAR VOLUME 91.2 fl (80.0-96.0); MONO # 0.6 10^3/uL (0.0-0.8); MONO % 6.5 % (2.0-8.0); NEUTROPHILS # 7.7 10^3/uL (1.5-8.5); PLATELET COUNT, AUTOMATED 189 10^3/uL (150-450); RED BLOOD COUNT 4.52 10^6/uL (4.00-5.40); WHITE BLOOD COUNT 9.9 10^3/uL (4.0-10.0)
[2022-03-02 14:17] LABS: MONO SCRN NEGATIVE (NEGATIVE)
[2022-03-02 14:25] LABS: MONO REFLEX EBV VCA IgM NEGATIVE (NEGATIVE)
[2022-03-02 14:31] LABS: ALBUMIN 4.2 GM/DL (3.2-5.2); ALT/SGPT 29 U/L (12-78); BILIRUBIN,TOTAL 0.6 MG/DL (0.2-1.0); BLOOD UREA NITROGEN 8 MG/DL (7-18); CALCIUM LEVEL 9.6 MG/DL (8.5-10.1); CARBON DIOXIDE LEVEL 30 MEQ/L (21-32); CHLORIDE LEVEL 101 MEQ/L (98-107); CREATININE FOR GFR 0.82 MG/DL (0.55-1.30); GLOMERULAR FILTRATION RATE > 60.0 (>60); GLUCOSE, FASTING 73 MG/DL (70-100); POTASSIUM SERUM 4.9 MEQ/L (3.5-5.1); SODIUM LEVEL 137 MEQ/L (136-145)
== END ==
LOC: M PLALAB 11:45
PROVIDERS: ATTEND Physician Assistant
DX: J02.9 Acute pharyngitis, unspecified (principal)